=== PATIENT | male | born 1985 | race Caucasian/White ===

== ENCOUNTER 2019-05-13 21:42 | Emergency (ER) | payer OTHER ==
[~2019-05-13] VITALS: Ht 177.8 cm; Wt 70.3 kg
== END 2019-05-14 00:51 ==
LOC: M.ERS 21:42
DX: M79.641 Pain in right hand (principal); M79.89 Other specified soft tissue disorders; V19.9XXA Pedal cyclist (driver) (passenger) injured in unspecified traffic accident, initial encounter; Y93.55 Activity, bike riding; Y92.89 Other specified places as the place of occurrence of the external cause; Y99.8 Other external cause status